=== PATIENT | female | born 1990 | race Caucasian/White ===

== ENCOUNTER 2021-04-07 15:07 | Inpatient (IN) | payer MEDICAID ==
[2021-04-07] MEDS ORDERED: ceFAZolin 2 GM in Sodium Chloride 0.9% 100 ML IV ONE (15:12)
[2021-04-07] MEDS ORDERED: Oxytocin/Lactated Ringers 10 UNIT/1,000 ML BAG IV ONE (15:14)
[2021-04-07] MEDS ORDERED: Sodium Chloride 0.9% 10 ML Syringe FLUSH PRN (15:15)
[2021-04-07] MEDS ORDERED: Oxytocin/Lactated Ringers 10 UNIT/1,000 ML BAG IV SCH (15:15)
[2021-04-07] MEDS ORDERED: Lactated Ringers 1,000 ML IV SCH (15:15)
[2021-04-07] MEDS ORDERED: Nalbuphine 10 MG/1 ML Vial IVPUSH PRN (15:15)
[2021-04-07] MEDS ORDERED: Lidocaine 1% 50 ML MDV INJECT PRN (15:15)
[2021-04-07] MEDS: Ibuprofen 600 MG Tab PO PRN ×2 (15:54→22:29)
--- NOTE | 2021-04-07 16:17 | PCM.LDHP ---
L&D History of Present Illness - General Date of Service: 04/07/21 Admit Problem/Dx: Patient Status Order with Admit Dx/Problem 04/07/21 15:15 Patient Status [ADT] Routine Admission Diagnosis/Problem Admission Diagnosis/Problem 04/07/21 16:05 normal labor Source of Information: Patient - History of Present Illness Introduction:: Megan is a 31-year-old G5, now P3114 who presented to the hospital and active labor. She states contractions started around 0300 but were very mild and only got stronger once she left her house. Membranes are intact upon arrival and she was found to be at complete dilation. IV was placed but no antibiotics were able to be administered for GBS positive status. She did not receive an epidural. She had artificial rupture of membranes followed quickly by delivery of a live vigorous female infant see delivery note for further details. has been overall uncomplicated. She has a history of x1 with her first baby. Maternal labs O+, antibody screen negative Rubella immune RPR nonreactive Hep B negative HIV negative HCV negative GC chlamydia not performed. Failed 1 hour glucose, declined 3-hour GTT but had 2 weeks of normal fasting and 2-hour postprandial sugars. - Related Data Allergies/Adverse Reactions: Allergies Allergy/AdvReac Type Severity Reaction Status Date / Time amoxicillin Allergy Unknown Other Verified 04/07/21 15:15 H&P Review of Systems - Review of Systems: Review Of Systems: Unable To Obtain (imminent delivery) Reason Not Obtained: imminent delivery L&D Exam - Exam Exam: See Below - Vital Signs Weight: 74.389 kg - OB Specific Heart Tones per Min: 140 Heart Rate (FHR) Variability: Moderate (6-25 bpm) Presentation: Left Occiput Anterior (DANI) - Exam General: Alert, Oriented Extremities: Normal Inspection, No Pedal Edema Skin: Warm, Dry, Intact Psychiatric: Alert - Problem List (1) Normal labor SNOMED Code(s): 73881073 ICD Code: O80 - ENCOUNTER FOR FULL-TERM UNCOMPLICATED DELIVERY; Z37.9 - OUTCOME OF DELIVERY, UNSPECIFIED Status: Acute Current Visit: Yes (2) (vaginal after ) SNOMED Code(s): 289256212 ICD Code: O34.219 - MATERNAL CARE FOR UNSP TYPE SCAR FROM PREVIOUS DEL Status: Acute Current Visit: Yes (3) Positive GBS test SNOMED Code(s): 594721229, 532323078 ICD Code: B95.1 - STREPTOCOCCUS, GROUP B, CAUSING DISEASES CLASSD ELSWHR Status: Acute Current Visit: Yes Problem List Initiated/Reviewed/Updated: Yes Orders Last 24hrs: Active Orders 24 hr Category Date Time Status Patient Status Manage Transfer [TRANSFER] Routine ADT 04/07/21 15:59 Ordered Patient Status [ADT] Routine ADT 04/07/21 15:15 Active Activity as Tolerated [RC] PFP Care 04/07/21 15:15 Active Communication Order [RC] ASDIRECTED Care 04/07/21 15:15 Active Heart Tones [RC] ASDIRECTED Care 04/07/21 15:15 Active Non Stress Test [RC] PER UNIT ROUTINE Care 04/07/21 15:15 Active Notify Provider [RC] PFP Care 04/07/21 15:15 Active Notify Provider [RC] PRN Care 04/07/21 15:15 Active Peripheral IV Care [RC] . DIRECTED Care 04/07/21 15:15 Active Vital Signs [RC] PER UNIT ROUTINE Care 04/07/21 15:15 Active Regular Diet [DIET] Diet 04/07/21 Dinner Active CBC W/O DIFF,HEMOGRAM [HEME] Routine Lab 04/07/21 15:15 Ordered CORONAVIRUS COVID-19 ANAMARIA [MOLEC] Stat Lab 04/07/21 15:17 Ordered RAPID PLASMA REAGIN,RPR [CHEM] Routine Lab 04/07/21 15:15 Ordered Lactated Ringers [Ringers, Lactated] 1,000 ml Med 04/07/21 15:15 Active IV ASDIRECTED Lidocaine 1% [Xylocaine 1%] Med 04/07/21 15:15 Active 50 ml INJECT ONETIME PRN Nalbuphine [Nubain] Med 04/07/21 15:15 Active 10 mg IVPUSH Q2H PRN Oxytocin/Lactated Ringers [Pitocin in LR 10 Units/1,000 Med 04/07/21 15:15 Active ML] 10 unit in 1,000 ml IV .CONTINUOUS Sodium Chloride 0.9% [Saline Flush] Med 04/07/21 15:15 Active 10 ml FLUSH ASDIRECTED PRN Electronic Heart Tones Ext w TOCO [WOMSER] Oth 04/07/21 15:15 Ordered Routine Electronic Heart Tones Internal [WOMSER] Per Unit Oth 04/07/21 15:15 Ordered Routine Peripheral IV Insertion Adult [OM.PC] Routine Oth 04/07/21 15:15 Ordered Resuscitation Status Routine Resus Stat 04/07/21 15:15 Ordered Medication Orders Lactated Ringer's (Ringers, Lactated) 1,000 mls @ 100 mls/hr IV ASDIRECTED LUCIA Oxytocin/Lactated Ringer's (Pitocin In Lr 10 Units/1,000 Ml) 10 unit in 1,000 mls @ 500 mls/hr IV .CONTINUOUS LUCIA Lidocaine HCl (Lidocaine 1% 50 Ml Mdv) 50 ml INJECT ONETIME PRN PRN Reason: Breakthrough Pain Nalbuphine HCl (Nalbuphine 10 Mg/1 Ml Vial) 10 mg IVPUSH Q2H PRN PRN Reason: Pain Sodium Chloride (Sodium Chloride 0.9% 10 Ml Syringe) 10 ml FLUSH ASDIRECTED PRN PRN Reason: Keep Vein Open Assessment/Plan Comment:: 31 yo G5, now P3114 status post shortly after arrival. Uncomplicated delivery. GBS positive, untreated. Routine cares. Anticipate discharge in 48 hours. The patient was comfortable with the above plan and all questions were answered. Jeri Burger MD Family Medicine
--- NOTE | 2021-04-07 16:28 | PCM.DEL ---
L & D Note - General Info Date of Service: 04/07/21 Mother's Due Date: 04/07/21 - Delivery Note Labor: Spontaneous Delivery Outcome: Livebirth Infant Delivery Method: Spontaneous Vaginal Delivery-Single Delivery Mode: Spontaneous Presentation: Left Occiput Anterior (DANI) Nuchal Cord: None Anesthesia Type: None Anesthetic: Lidocaine (Xylocaine) 1% Plain Local Anesthetic Volume: 5cc Amniotic Fluid Description: Clear Episiotomy Type: None Laceration: 2nd Degree Suture type: Vicryl Suture size: 3-0 Placenta: Spontaneous Cord: 3 Vessels Estimated Blood Loss: 300 Resuscitation Needed: No : Suctioned Score 1 min: 9 Score 5 min: 9 Delivery Comments (Free Text/Narrative):: Patient presented in active labor at complete dilation upon arrival with membranes intact. IV was started but antibiotics were not able to be administered for GBS positive status due to imminent delivery. Labor was augmented with AROM quickly followed by delivery. She did not receive epidural anesthesia. Head delivered spontaneously. No cord complications. Body delivered without incident. Vigorous placed on mom's chest, dried and stimulated. Delayed cord clamping performed x 1 minute. Cord clamped and cut. Placenta delivered spontaneously. Lacerations: Second-degree repaired in usual fashion. EBL 300ml. - General Info Date of Service: 04/07/21 Admission Dx/Problem (Free Text): Patient Status Order with Admit Dx/Problem 04/07/21 15:15 Patient Status [ADT] Routine Admission Diagnosis/Problem Admission Diagnosis/Problem 04/07/21 16:05 normal labor - Review of Systems Systems Review Comment:: Unable to be obtained due to imminent delivery - Patient Data Weight - Most Recent: 74.389 kg Med Orders - Current: Current Medications Lactated Ringer's (Ringers, Lactated) 1,000 mls @ 100 mls/hr IV ASDIRECTED LUCIA Oxytocin/Lactated Ringer's (Pitocin In Lr 10 Units/1,000 Ml) 10 unit in 1,000 mls @ 500 mls/hr IV .CONTINUOUS LUCIA Lidocaine HCl (Lidocaine 1% 50 Ml Mdv) 50 ml INJECT ONETIME PRN PRN Reason: Breakthrough Pain Nalbuphine HCl (Nalbuphine 10 Mg/1 Ml Vial) 10 mg IVPUSH Q2H PRN PRN Reason: Pain Sodium Chloride (Sodium Chloride 0.9% 10 Ml Syringe) 10 ml FLUSH ASDIRECTED PRN PRN Reason: Keep Vein Open Discontinued Medications Cefazolin Sodium 2 gm/ Sodium (Chloride) 100 mls @ 100 mls/hr IV ONETIME ONE Stop: 04/07/21 16:11 Oxytocin/Lactated Ringer's (Pitocin In Lr 10 Units/1,000 Ml) Confirm Administered Dose 10 unit in 1,000 mls @ as directed IV .STK-MED ONE Stop: 04/07/21 15:15 Cefazolin Sodium/Dextrose (Ancef 2 Gm/50 Ml) 50 mls @ 100 mls/hr IV ONETIME ONE Stop: 04/07/21 15:59 - Exam General: Alert, Oriented GI/Abdominal Exam: Soft Extremities: Normal Inspection, No Pedal Edema Skin: Warm, Dry, Intact Psy/Mental Status: Alert, Normal Mood - Problem List & Annotations (1) Normal labor SNOMED Code(s): 82679128 Code(s): O80 - ENCOUNTER FOR FULL-TERM UNCOMPLICATED DELIVERY; Z37.9 - OUTCOME OF DELIVERY, UNSPECIFIED Status: Acute Current Visit: Yes (2) (vaginal after ) SNOMED Code(s): 995550096 Code(s): O34.219 - MATERNAL CARE FOR UNSP TYPE SCAR FROM PREVIOUS DEL Status: Acute Current Visit: Yes (3) Positive GBS test SNOMED Code(s): 819311233, 532785392 Code(s): B95.1 - STREPTOCOCCUS, GROUP B, CAUSING DISEASES CLASSD ELSWHR Status: Acute Current Visit: Yes - Problem List Review Problem List Initiated/Reviewed/Updated: Yes - My Orders Last 24 Hours: My Active Orders 04/07/21 15:15 Patient Status [ADT] Routine Activity as Tolerated [RC] PFP Communication Order [RC] ASDIRECTED Heart Tones [RC] ASDIRECTED Non Stress Test [RC] PER UNIT ROUTINE Notify Provider [RC] PFP Notify Provider [RC] PRN Peripheral IV Care [RC] . DIRECTED Vital Signs [RC] PER UNIT ROUTINE CBC W/O DIFF,HEMOGRAM [HEME] Routine RAPID PLASMA REAGIN,RPR [CHEM] Routine Lactated Ringers [Ringers, Lactated] 1,000 ml IV ASDIRECTED Lidocaine 1% [Xylocaine 1%] 50 ml INJECT ONETIME PRN Nalbuphine [Nubain] 10 mg IVPUSH Q2H PRN Oxytocin/Lactated Ringers [Pitocin in LR 10 Units/1,000 ML] 10 unit in 1,000 ml IV .CONTINUOUS Sodium Chloride 0.9% [Saline Flush] 10 ml FLUSH ASDIRECTED PRN Electronic Heart Tones Ext w TOCO [WOMSER] Routine Electronic Heart Tones Internal [WOMSER] Per Unit Routine Peripheral IV Insertion Adult [OM.PC] Routine Resuscitation Status Routine 04/07/21 15:59 Patient Status Manage Transfer [TRANSFER] Routine 04/07/21 16:00 CORONAVIRUS COVID-19 ANAMARIA [MOLEC] Stat 04/07/21 Dinner Regular Diet [DIET] - Assessment Assessment:: 31-year-old G5 now P3114 day 0 status post without complications. Second-degree perineal laceration. - Plan Plan:: Routine cares. Anticipate discharge in 48 hours. The patient was comfortable with the above plan and all questions were answered. Jeri Burger MD Family Medicine
[2021-04-07] MEDS ORDERED: Witch Hazel Medicated Pads 40/Jar TOP PRN (16:30)
[2021-04-07] MEDS ORDERED: Benzocaine/Menthol 20%-0.5% Spray 78 GM Cannister TOP PRN (16:30)
[2021-04-07] MEDS ORDERED: Acetaminophen 325 MG Tab PO PRN (19:00)
[2021-04-08] MEDS: Ibuprofen 600 MG Tab PO PRN ×3 (07:42→20:52)
--- NOTE | 2021-04-08 10:36 | PCM.PNPP ---
- General Info Date of Service: 04/08/21 Admission Dx/Problem (Free Text): Patient Status Order with Admit Dx/Problem 04/07/21 15:15 Patient Status [ADT] Routine Admission Diagnosis/Problem Admission Diagnosis/Problem 04/07/21 16:05 normal labor Subjective Update: Megan is a 31-year-old -1-1-4 who is day 1 status post . She is doing well today without concerns. She is urinating spontaneously. She has had a bowel movement already since delivery. Her pain is well controlled. Lochia is mild. She is nursing and this is going well. She denies headache, vision changes, nausea, vomiting, leg swelling. She is tolerating a regular diet. Functional Status: Reports: Pain Controlled, Tolerating Diet, Ambulating, Urinating (A comprehensive review of systems was performed and is negative except for those mentioned in the HPI.) - General Info Date of Service: 04/08/21 - Patient Data Vital Signs - Most Recent: Last Vital Signs Temp 97.9 F 04/08/21 07:05 Pulse 74 04/08/21 07:05 Resp 14 04/08/21 07:05 BP 101/60 04/08/21 07:05 Pulse Ox 97 04/08/21 07:05 Weight - Most Recent: 74.389 kg I&O - Last 24 Hours: Intake & Output 04/07/21 04/08/21 04/08/21 22:59 06:59 14:59 Intake Total 1000 Output Total 73 Balance 927 Lab Results - Last 24 Hours: Laboratory Results - last 24 hr 04/07/21 04/07/21 Range/Units 16:00 16:20 WBC 12.83 H (3.98-10.04) K/mm3 RBC 5.00 (3.98-5.22) M/mm3 Hgb 13.7 (11.2-15.7) gm/dl Hct 40.4 (34.1-44.9) % MCV 80.8 (79.4-94.8) fl MCH 27.4 (25.6-32.2) pg MCHC 33.9 (32.2-35.5) g/dl RDW Std Deviation 40.0 (36.4-46.3) fL Plt Count 205 (182-369) K/mm3 MPV 9.6 (9.4-12.3) fl SARS-CoV-2 RNA (ANAMARIA) Negative (NEGATIVE) Med Orders - Current: Current Medications Acetaminophen (Acetaminophen 325 Mg Tab) 975 mg PO Q6H PRN PRN Reason: mild pain or fever Benzocaine/Menthol (Benzocaine/Menthol 20%-0.5% [place] 78 Gm Cannister) 0 gm TOP ASDIRECTED PRN PRN Reason: Perineal Comfort Measure Last Admin: 04/07/21 17:18 Dose: 1 can Documented by: Ibuprofen (Ibuprofen 600 Mg Tab) 600 mg PO Q6H PRN PRN Reason: Mild pain or fever Last Admin: 04/08/21 07:42 Dose: 600 mg Documented by: Evans Tate (Evans Tate Medicated Pads 40/Jar) 1 pad TOP ASDIRECTED PRN PRN Reason: Perineal Comfort Measure Last Admin: 04/07/21 17:18 Dose: 1 tub Documented by: Discontinued Medications Cefazolin Sodium 2 gm/ Sodium (Chloride) 100 mls @ 100 mls/hr IV ONETIME ONE Stop: 04/07/21 16:11 Last Admin: 04/07/21 19:09 Dose: Not Given Documented by: Oxytocin/Lactated Ringer's (Pitocin In Lr 10 Units/1,000 Ml) Confirm Administered Dose 10 unit in 1,000 mls @ as directed IV .STK-MED ONE Stop: 04/07/21 15:15 Last Admin: 04/07/21 20:16 Dose: Not Given Documented by: Lactated Ringer's (Ringers, Lactated) 1,000 mls @ 100 mls/hr IV ASDIRECTED LUCIA Oxytocin/Lactated Ringer's (Pitocin In Lr 10 Units/1,000 Ml) 10 unit in 1,000 mls @ 500 mls/hr IV .CONTINUOUS LUCIA Last Admin: 04/07/21 15:22 Dose: 500 mls/hr Documented by: Cefazolin Sodium/Dextrose (Ancef 2 Gm/50 Ml) 50 mls @ 100 mls/hr IV ONETIME ONE Stop: 04/07/21 15:59 Last Admin: 04/07/21 20:17 Dose: Not Given Documented by: Lidocaine HCl (Lidocaine 1% 50 Ml Mdv) 50 ml INJECT ONETIME PRN PRN Reason: Breakthrough Pain Last Admin: 04/07/21 16:29 Dose: 50 ml Documented by: Nalbuphine HCl (Nalbuphine 10 Mg/1 Ml Vial) 10 mg IVPUSH Q2H PRN PRN Reason: Pain Sodium Chloride (Sodium Chloride 0.9% 10 Ml Syringe) 10 ml FLUSH ASDIRECTED PRN PRN Reason: Keep Vein Open - Interaction Infant Disposition, : in Room with Family Interaction: Holding Infant Feeding: Breastfed ; Nursed Well Support Person: - Recovery Exam Fundal Tone: Firm Fundal Level: 1 Fingerbreadths Below Umbilicus Fundal Placement: Midline Lochia Amount: Small Lochia Color: Rubra/Red - Exam General: Alert, Oriented Neck: Supple Lungs: Clear to Auscultation, Normal Respiratory Effort Cardiovascular: Regular Rate, Regular Rhythm GI/Abdominal Exam: Soft, Tender (appropriately) Extremities: No Pedal Edema Skin: Warm, Dry, Intact Psy/Mental Status: Alert, Normal Affect, Normal Mood - Problem List & Annotations (1) Normal labor SNOMED Code(s): 40909762 Code(s): O80 - ENCOUNTER FOR FULL-TERM UNCOMPLICATED DELIVERY; Z37.9 - OUTCOME OF DELIVERY, UNSPECIFIED Status: Acute Current Visit: Yes (2) (vaginal after ) SNOMED Code(s): 394152838 Code(s): O34.219 - MATERNAL CARE FOR UNSP TYPE SCAR FROM PREVIOUS DEL Status: Acute Current Visit: Yes (3) Positive GBS test SNOMED Code(s): 585904050, 997608447 Code(s): B95.1 - STREPTOCOCCUS, GROUP B, CAUSING DISEASES CLASSD ELSWHR Status: Acute Current Visit: Yes - Problem List Review Problem List Initiated/Reviewed/Updated: Yes - My Orders Last 24 Hours: My Active Orders 04/07/21 15:15 Resuscitation Status Routine 04/07/21 16:20 RAPID PLASMA REAGIN,RPR [CHEM] Routine 04/07/21 16:30 Benzocaine/Menthol [Dermoplast Pain Relief 20%-0.5% [place]] See Dose Instructions TOP ASDIRECTED PRN Ibuprofen [Motrin] 600 mg PO Q6H PRN witch Simon [Tucks] 1 pad TOP ASDIRECTED PRN Heat Therapy [OM.PC] PRN 04/07/21 16:30 Patient Status [ADT] Routine Activity as Tolerated [RC] PER UNIT ROUTINE Vital Signs [RC] 03,,, Assess Lochia [WOMSER] Per Unit Routine Assess Uterine Involution [WOMSER] Per Unit Routine Breast Pump [WOMSER] Per Unit Routine Medication Administration Instruction [OM.PC] Routine Perineal Care [OM.PC] Per Unit Routine [place] [OM.PC] Per Unit Routine 04/07/21 19:00 Acetaminophen [TylenoL] 975 mg PO Q6H PRN 04/08/21 16:30 Heat Therapy [OM.PC] PRN - Assessment Assessment:: 31-year-old G5 now P3114 day 1 s/p , doing well. - Plan Plan:: Routine cares. Anticipate discharge tomorrow The patient was comfortable with the above plan and all questions were answered. Jeri Burger MD Family Medicine
--- NOTE | 2021-04-09 09:34 | PCM.DCSUM1 ---
Discharge Summary - Hospital Course Free Text/Narrative:: Megan is a 31-year-old G5 now P3114 who is day 2 status post . She is doing well today without complaints. Her pain is well controlled with [id number] medications. She is urinating spontaneously. Her bowel function has returned. She is breast-feeding and this is going fairly well. Denies headaches, vision changes, leg swelling. She admits to being a bit "uptight" regarding the recent transfer of her daughter to level 2 nursery for hypoxia. Otherwise no concerns. She is ready for discharge today. Diagnosis: Stroke: No - Discharge Data Discharge Date: 04/09/21 Discharge Disposition: Home, Self-Care 01 Condition: Good - Referral to Home Health Primary Care Physician: Jeri Burger MD - Discharge Diagnosis/Problem(s) (1) Normal labor SNOMED Code(s): 09645864 ICD Code: O80 - ENCOUNTER FOR FULL-TERM UNCOMPLICATED DELIVERY; Z37.9 - OUTCOME OF DELIVERY, UNSPECIFIED Status: Acute Current Visit: Yes (2) (vaginal after ) SNOMED Code(s): 706881445 ICD Code: O34.219 - MATERNAL CARE FOR UNSP TYPE SCAR FROM PREVIOUS DEL Status: Acute Current Visit: Yes (3) Positive GBS test SNOMED Code(s): 797767601, 815666794 ICD Code: B95.1 - STREPTOCOCCUS, GROUP B, CAUSING DISEASES CLASSD ELSWHR Status: Acute Current Visit: Yes - Patient Instructions Diet: Regular Diet as Tolerated Activity: As Tolerated Notify Provider of: Fever, Increased Pain, Swelling and Redness, Drainage - Discharge Plan *PRESCRIPTION DRUG MONITORING PROGRAM REVIEWED*: Not Applicable Home Medications: Home Meds Pnv No.95/Ferrous Fum/Folic AC [ Vitamin Tablet] 1 tab PO DAILY 04/07/21 [History] Oxygen Therapy Mode: Room Air Referrals: Florecita Laird MD [Physician] - (6 wk pp exam in Tao's absence. ) - Discharge Summary/Plan Comment DC Time >30 min.: No Total # of Minutes for Discharge Time: 20 Discharge Summary/Plan Comment: Discharge patient to the room. Follow-up criteria discussed in great detail including worsening pain, heavy bleeding, foul-smelling discharge, headaches, vision changes, increase in leg swelling. depression discussed. Patient declines symptoms. The patient was comfortable with the above plan and all questions were answered. Jeri Burger MD Family Medicine - General Info Date of Service: 04/09/21 Functional Status: Reports: Pain Controlled - Review of Systems Systems Review Comment: A comprehensive review of systems was performed and is negative except for those mentioned in the HPI. - Patient Data Vitals - Most Recent: Last Vital Signs Temp 97.9 F 04/09/21 03:15 Pulse 69 04/09/21 03:15 Resp 12 04/09/21 03:15 BP 106/62 04/09/21 03:15 Pulse Ox 97 04/09/21 03:15 Weight - Most Recent: 74.389 kg I&O - Last 24 hours: Intake & Output 04/08/21 04/09/21 04/09/21 22:59 06:59 14:59 Intake Total 175 Balance 175 Lab Results - Last 24 hrs: Laboratory Results - last 24 hr 04/07/21 Range/Units 16:20 RPR Non-reactive (NONREACTIVE) Med Orders - Current: Current Medications Acetaminophen (Acetaminophen 325 Mg Tab) 975 mg PO Q6H PRN PRN Reason: mild pain or fever Benzocaine/Menthol (Benzocaine/Menthol 20%-0.5% [place] 78 Gm Cannister) 0 gm TOP ASDIRECTED PRN PRN Reason: Perineal Comfort Measure Last Admin: 04/07/21 17:18 Dose: 1 can Documented by: Ibuprofen (Ibuprofen 600 Mg Tab) 600 mg PO Q6H PRN PRN Reason: Mild pain or fever Last Admin: 04/08/21 20:52 Dose: 600 mg Documented by: Evans Tate (Evans Tate Medicated Pads 40/Jar) 1 pad TOP ASDIRECTED PRN PRN Reason: Perineal Comfort Measure Last Admin: 04/07/21 17:18 Dose: 1 tub Documented by: Discontinued Medications Cefazolin Sodium 2 gm/ Sodium (Chloride) 100 mls @ 100 mls/hr IV ONETIME ONE Stop: 04/07/21 16:11 Last Admin: 04/07/21 19:09 Dose: Not Given Documented by: Oxytocin/Lactated Ringer's (Pitocin In Lr 10 Units/1,000 Ml) Confirm Administered Dose 10 unit in 1,000 mls @ as directed IV .STK-MED ONE Stop: 04/07/21 15:15 Last Admin: 04/07/21 20:16 Dose: Not Given Documented by: Lactated Ringer's (Ringers, Lactated) 1,000 mls @ 100 mls/hr IV ASDIRECTED LUCIA Oxytocin/Lactated Ringer's (Pitocin In Lr 10 Units/1,000 Ml) 10 unit in 1,000 mls @ 500 mls/hr IV .CONTINUOUS LUCIA Last Admin: 04/07/21 15:22 Dose: 500 mls/hr Documented by: Cefazolin Sodium/Dextrose (Ancef 2 Gm/50 Ml) 50 mls @ 100 mls/hr IV ONETIME ONE Stop: 04/07/21 15:59 Last Admin: 04/07/21 20:17 Dose: Not Given Documented by: Lidocaine HCl (Lidocaine 1% 50 Ml Mdv) 50 ml INJECT ONETIME PRN PRN Reason: Breakthrough Pain Last Admin: 04/07/21 16:29 Dose: 50 ml Documented by: Nalbuphine HCl (Nalbuphine 10 Mg/1 Ml Vial) 10 mg IVPUSH Q2H PRN PRN Reason: Pain Sodium Chloride (Sodium Chloride 0.9% 10 Ml Syringe) 10 ml FLUSH ASDIRECTED PRN PRN Reason: Keep Vein Open - Exam General: Reports: Alert, Oriented Lungs: Reports: Clear to Auscultation, Normal Respiratory Effort Cardiovascular: Reports: Regular Rate, Regular Rhythm GI/Abdominal Exam: Soft, Tender (appropriately) (Female) Exam: Fundal Height (u-1) Extremities: Non-Tender, No Pedal Edema Skin: Reports: Warm, Dry, Intact Psy/Mental Status: Reports: Alert, Normal Affect, Normal Mood
[2021-04-09] MEDS: Ibuprofen 600 MG Tab PO PRN (11:23)
== END 2021-04-09 15:30 | disposition home or self-care (01) | DRG 807 ==
LOC: JD.OBCHECK 15:07 → JD.OB 15:15 → OBSVTOIN 15:21 → JD.OB 15:21
PROVIDERS: ADMIT Family Medicine; ATTEND Family Medicine
PROC: 10E0XZZ Delivery of Products of Conception, External Approach (ICD-10-PCS; principal; 2021-04-07)
PROC: 0KQM0ZZ Repair Perineum Muscle, Open Approach (ICD-10-PCS; 2021-04-07)
DX: O34.211 Maternal care for low transverse scar from previous cesarean delivery (principal); Z37.0 Single live birth; Z3A.40 40 weeks gestation of pregnancy; O48.0 Post-term pregnancy; O99.824 Streptococcus B carrier state complicating childbirth; O70.1 Second degree perineal laceration during delivery; Z20.822 Contact with and (suspected) exposure to COVID-19
CPT/HCPCS: 36415; 59025; 59409; 85027; 86592; A9270-GY; J2001; J2590; U0002